=== PATIENT | male | born 1940 | race Caucasian/White ===

== ENCOUNTER 2017-01-16 11:35 | Outpatient (CLI) | payer MEDICARE ==
--- NOTE | 2017-01-16 13:52 | RAD ---
ABDOMEN ONE VIEW: History: Abdominal pain. FINDINGS/IMPRESSION: The bowel gas pattern is unremarkable. There are degenerative changes of the spine. Pelvic phlebolit hs are present. POS: [facility]
== END 2017-01-16 11:36 | disposition home or self-care (01) ==
LOC: RAD-FRANK 11:35
PROVIDERS: ATTEND Nurse Practitioner Family
DX: R10.9 Unspecified abdominal pain (principal); M47.9 Spondylosis, unspecified
CPT/HCPCS: 74000

== ENCOUNTER 2017-09-14 13:28 | Emergency (ER) | payer MEDICARE ==
[2017-09-14 14:37] LABS: #Lymphocytes 0.3 thou/uL (1.20-3.40); #Monocytes 0.5 thou/uL (0.11-0.59); #Neutrophils 2.4 thou/uL (1.40-6.50); %Basophils 0.3 % (0.0-1.0); %Eosinophils 1.1 % (0.0-10.0); %Lymphocytes 9.6 % (21.0-51.0); %Monocytes 14.5 % (0.0-10.0); %Neutrophils 74.5 % (42.0-75.0); Hemoglobin 11.7 g/dL (14.0-18.0); Mean Corpuscular HGB CONC 34.1 g/dL (32.0-36.0); Platelet Count 213 thou/uL (130-400); RBC Distribution Width 12.9 % (11.5-14.5); Red Blood Cell (RBC) Count 3.78 mill/uL (4.70-6.10); White Blood Cell (WBC) Count 3.3 thou/uL (4.8-10.8)
[2017-09-14 14:41] LABS: Bilirubin Negative (Negative); Blood, Urine Moderate (Negative); Clarity CLOUDY (Clear); Glucose, Urine (Dipstick) Negative (Negative); Leukocyte Large (Negative); Nitrite Positive (Negative); Protein, Urine (Dipstick) 30 mg/dL (Neg-Trace); Specific Gravity, Urine 1.012 (1.002-1.036)
[2017-09-14 14:42] LABS: Bacteria/HPF 2+ HPF (None Seen); Hyaline Casts/LPF 0-3 HYALINE CAST LPF (0-3 Hyaline); Pathc Cast-AUWi Flag 0.29 (0-2.49); Squamous Epithelial None Seen HPF (0-3)
[2017-09-14 14:55] LABS: ALT (SGPT) 17 U/L (8-55); AST (SGOT) 22 U/L (5-34); Albumin 3.5 g/dL (3.4-4.8); Alkaline Phosphatase 118 U/L (40-150); Anion Gap 12 mmol/L (10-20); BUN (Urea Nitrogen) 34 mg/dL (8.4-25.7); Bilirubin, Total 2.2 mg/dL (0.2-1.2); Calc. Creatinine Clearance 0 mL/min (70-130); Calcium 8.6 mg/dL (7.8-10.44); Carbon Dioxide 23 mmol/L (23-31); Chloride 105 mmol/L (98-107); Estimated GFR-MDRD 63; Globulin 2.7 g/dL (2.4-3.5); Glucose 91 mg/dL (83-110); Potassium 4.2 mmol/L (3.5-5.1); Protein, Total 6.2 g/dL (5.8-8.1); Sodium 136 mmol/L (136-145)
[2017-09-14] MEDS ORDERED: cefTRIAXone\\ROCEPHIN 1 GM VIAL ONE (15:41)
== END 2017-09-14 17:36 | disposition home or self-care (01) ==
LOC: ERS 13:28
DX: N30.01 Acute cystitis with hematuria (principal); E78.5 Hyperlipidemia, unspecified; I10 Essential (primary) hypertension; Z85.819 Personal history of malignant neoplasm of unspecified site of lip, oral cavity, and pharynx; Z79.899 Other long term (current) drug therapy
CPT/HCPCS: 80053; 81003; 81015; 85025; 96365; J0696

== ENCOUNTER 2017-12-19 08:16 | Outpatient (CLI) | payer MEDICARE ==
--- NOTE | 2017-12-19 09:24 | ULT ---
TESTICULAR ULTRASOUND: Date: 12-19-17 History: Hydrocele, left inguinal hernia, vericocele. Comparison: None available. FINDINGS: The testicles demonstrate slight heterogeneity but have a symmetric appearance bilaterally without ev idence of a testicular mass. The right testicle measures 4.3 cm x 3 cm x 1.9 cm and the left testicle measures 4.1 cm x 3.6 cm x 2.1 cm. The testicles demonstrate symmetric flow bilaterally. Doppler evaluation with spectral analysis and c olor flow evaluation of each testicle does demonstrate arterial and venous flow in each testicle. There is a small 0.4 cm anechoic cystic structure in the right epididymis suggesting an epididymal cy st. The left epididymis is slightly heterogeneous in appearance, and there is an approximately 0.7 cm ane choic cystic structure in the left epididymis, also likely related to a small epididymal cyst. There is evidence of a loop of bowel seen within the left scrotum just superior to the left testicle consistent with inguinal hernia containing a loop of bowel and likely related to a loop of small willy l. There is evidence of small left hydrocele. There are a few dilated tubular structures within the left scrotum measuring up to 3 mm with increased flow on valsalva, findings may be related to small left sided vericocele. IMPRESSION: 1. Left inguinal hernia containing a loop of bowel. 2. Small left hydrocele. 3. Probable small left sided vericocele. 4. Small bilateral epididymal cysts. 5. Nonspecific mild heterogeneity of each testicle without testicular mass seen. POS: [facility]
--- NOTE | 2017-12-19 10:27 | CT ---
CT ABDOMEN WITH AND WITHOUT IV CONTRAST CT PELVIS WITH AND WITHOUT IV COTNRAST: DATE: 12/19/17. HISTORY: Left inguinal hernia. Hydrocele. History of facial cancer. Left testicular swelling. COMPARISON: None available. FINDINGS: There is partial visualization of AICD leads. Median sternotomy wires are present. There is minimal linear atelectasis versus scarring at each lung base. The lungs bases are otherwise clear. Degenerative changes are seen in the spine with a sclerotic density in the left femoral neck demonstr ating characteristics most compatible with a bone island. Punctate sclerotic density in the right in ferior pubic ramus also likely represents a tiny bone island. Dense vascular calcifications are identified with the abdomen and pelvis. A 1.9 cm fluid attenuation hypodense lesion is seen in the mid portion left kidney compatible with a cyst. A subcentimeter too small to characterize hypodense lesion is seen in the inferior pole right kidney. No renal or ureteral calculi are seen bilaterally, and there is no evidence of hydronephrosi s. A few tiny subcentimeter too small to characterize hypodense lesions are seen in the right hepatic lo be. The spleen, pancreas, and bilateral adrenal glands demonstrate a normal CT appearance. The urinary bladder is incompletely distended and while the gonzalez of the urinary bladder appear mildl y thickened, this is likely attributable to incomplete distention. The urinary bladder is otherwise normal in appearance. There is a large left inguinal hernia with multiple loops of bowel including loops of small bowel as well as a portion of the sigmoid colon extend into the hernia. The most inferior extent of the herni a is not visualized. The greatest dimension of the hernia defect is approximately 3 cm. There is a small left hydrocele present. A trace amount of free fluid is seen in the pelvis. A small to moderate amount of retained fecal material is seen throughout the colon. IMPRESSION: 1. Left renal cyst with subcentimeter too small to characterize hypodense lesion in the right kidney . 2. No renal or ureteral calculi are seen bilaterally, and there is no evidence of hydronephrosis. 3. Large left inguinal hernia which contains both small and large loops of bowel, but there is no ev idence of a bowel obstruction. 4. Mild cardiomegaly. 5. Subcentimeter too small to characterize hypodense lesions within the liver. 6. Prominent vascular calcifications throughout the abdomen and pelvis. 7. Multilevel degenerative changes in the lower thoracic as well as involving the lumbar spine. POS: [facility]
== END 2017-12-19 08:17 | disposition home or self-care (01) ==
LOC: ULT 08:16
PROVIDERS: ATTEND Urology
DX: N43.3 Hydrocele, unspecified (principal); I86.1 Scrotal varices; K40.90 Unilateral inguinal hernia, without obstruction or gangrene, not specified as recurrent; N40.1 Benign prostatic hyperplasia with lower urinary tract symptoms; N28.1 Cyst of kidney, acquired; I51.7 Cardiomegaly; K76.9 Liver disease, unspecified; N50.3 Cyst of epididymis; N50.9 Disorder of male genital organs, unspecified; M47.894 Other spondylosis, thoracic region; M47.896 Other spondylosis, lumbar region
CPT/HCPCS: 74178; 76870; 81001; 87086; 93976

== ENCOUNTER 2018-02-28 11:06 | Outpatient (CLI) | payer MEDICARE ==
[2018-02-28 12:12] LABS: Anion Gap 10 mmol/L (10-20); BUN (Urea Nitrogen) 20 mg/dL (8.4-25.7); Calc. Creatinine Clearance 0 mL/min (70-130); Calcium 9.2 mg/dL (7.8-10.44); Carbon Dioxide 25 mmol/L (23-31); Chloride 108 mmol/L (98-107); Estimated GFR-MDRD Greater than 90; Glucose 94 mg/dL (83-110); Potassium 4.2 mmol/L (3.5-5.1); Sodium 139 mmol/L (136-145)
[2018-02-28 13:14] LABS: Band 2 % (5-11); Eosinophils 4 % (0-10); Hemoglobin 12.5 g/dL (14.0-18.0); Lymphocytes 41 % (21-51); MDiff Complete? YES; Mean Corpuscular HGB CONC 31.8 g/dL (32.0-36.0); Mean Corpuscular Volume 94.4 fL (78.0-98.0); Mean Platelet Volume 7.8 fL (7.4-10.4); Monocytes 12 % (0-10); Neutrophil 41 % (42-75); Platelet Count 233 thou/uL (130-400); RBC Distribution Width 13.3 % (11.5-14.5); RBC Morphology Normal; Red Blood Cell (RBC) Count 4.17 mill/uL (4.70-6.10); White Blood Cell (WBC) Count 3.4 thou/uL (4.8-10.8)
--- NOTE | 2018-02-28 17:17 | EKG ---
Test Reason : Blood Pressure : / mmHG Vent. Rate : 058 BPM Atrial Rate : 058 BPM P-R Int : 270 ms QRS Dur : 112 ms QT Int : 458 ms P-R-T Axes : 065 -25 053 degrees QTc Int : 449 ms Sinus bradycardia with 1st degree A-V block Anteroseptal infarct , age undetermined Abnormal ECG When compared with ECG of 14-JAN-2014 07:16, [place] interval has increased Anteroseptal infarct is now Present Borderline criteria for Inferior infarct are no longer Present ST now depressed in Inferior leads Nonspecific T wave abnormality no longer evident in Lateral leads Confirmed by DR. Liz MEDELLIN ([id number]) on 02/28/2018 5:16:45 PM Referred By: MICHAEL Confirmed By:DR. Liz MEDELLIN
== END 2018-02-28 11:07 | disposition home or self-care (01) ==
LOC: LABBT 11:06
PROVIDERS: ATTEND Specialist
DX: Z01.818 Encounter for other preprocedural examination (principal); K40.90 Unilateral inguinal hernia, without obstruction or gangrene, not specified as recurrent
CPT/HCPCS: 80048; 85025; 93005; 93010

== ENCOUNTER 2018-03-06 08:36 | Day surgery (SDC) | payer MEDICARE ==
[2018-02-28 11:33] VITALS: BMI 28.4
--- NOTE | 2018-03-01 07:51 | HP ---
Ric Centeno is a 77-year-old male patient, who lives alone independently and drives independently, b ut his family lives nearby. The patient lives in [place]. 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 The patient is very active, but leaves most of the cattle work to his family now. The patient has an enlarging left inguinal hernia over the past year or greater. It is bothersome to him. He is referred to Dr. Kraus for this, who referred him to me. TOBACCO: None. ALCOHOL: None. ALLERGIES: None. MEDICATIONS: Flomax 0.4 mg a day, carvedilol daily, lisinopril 2.5 mg a day, ferrous sulfate a day, furosemide 20 mg a day, Protonix 40 mg a day, amiodarone 200 mg a day, potassium chloride 10 mEq exte nded release twice a day, Benadryl as needed, aspirin 81 mg a day. 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 Mcneill's mechanical systems control engineer appointment 01/29/2018, 09:00. The patient has a defibrillator placed 5 yea rs ago. REVIEW OF SYSTEMS: [place] point, otherwise, noncontributory. FAMILY HISTORY: Noncontributory. PHYSICAL EXAMINATION: VITAL SIGNS: pounds, 141/63, degrees. HEAD, EARS, EYES, NOSE, AND THROAT: Unremarkable. LUNGS: Clear to auscultation. CARDIAC: Regular rate and rhythm without murmur, rub, or gallop. ABDOMEN: Soft and nontender. Defibrillator in left chest. Standing reveals a left inguinal hernia into the scrotum. Bilateral te sticles normal. Right groin without hernia. ASSESSMENT AND PLAN: 1. Left inguinal hernia. We will plan robotic mesh repair. Risk of infection, bleeding, reoperatio n, recurrence explained, possibility of right inguinal hernia repair with mesh if indicated, based on intraoperative findings discussed. Risks and benefits discussed. Questions answered. Plan robotic left inguinal hernia repair with mesh after cardiac clearance with Dr. Mcneill, who he has appoint ment with. 2. Coronary artery disease, stable, asymptomatic. He is very active. We will await Dr. Mcneill t o see him 01/29/2018 for cardiac clearance. I have informed Dr. Mcneill's office of the purpose of this visit. 3. Defibrillator left chest. 4. History of head and neck cancer, status post Whipple reconstruction, mandible, and chemoradiation therapy. Currently, doing well and living independently. 5. 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 6. Arthritis, rheumatoid, by Dr. Fuller.
--- NOTE | 2018-03-01 07:54 | ADD-HP ---
ADDENDUM HISTORY OF PRESENT ILLNESS: Ric Centeno is a 77-year-old male [facility] Kraus as a history of coronary bypass grafting 07/2010, followed Dr. Zenobia borrero, has a defibrillator placed more than 5 years ago and has seen Dr. Mcneill recently. [facility] has visited Dr. Mcneill. Echocardiogram in July was normal EF, moderate MR, mild , asympt omatic for cardiac standpoint, having recent nuclear stress test with mild ischemia without symptoms and he was cleared for surgery without further cardiac evaluation. Plan is for robotic left inguinal hernia repair with mesh, possible right, pending operative findings. There have been no changes in medications, please see list on 01/15/2018. PHYSICAL EXAMINATION: VITAL SIGNS: Weight 196 pounds, height 61 inches, blood pressure 140/58, heart rate 65, temperature 98.7 degrees. HEAD, EYES, EARS, NOSE AND THROAT: Unremarkable. LUNGS: Clear to auscultation. CARDIAC: Regular rate and rhythm without murmur or gallop. ABDOMEN: Soft, nontender. Hernias as noted previously. ASSESSMENT: Left inguinal hernia. PLAN: Robotic mesh repair, outpatient. He understands the risk and benefits and consents.
[2018-03-06] MEDS ORDERED: CEFAZOLIN 2 GM/50 ML BAG ONE (10:44)
[2018-03-06] MEDS ORDERED: Ketorolac Tromethamine 30 MG/ML VIAL ONE (10:44)
[2018-03-06] MEDS ORDERED: Bupivacaine/Epinephrine 0.25% 30 ML VIAL ONE (11:11)
[2018-03-06] MEDS ORDERED: Fentanyl 250 MCG/5 ML VIAL ONE (12:27)
[2018-03-06] MEDS ORDERED: Succinylcholine Chloride 20 MG/ML 10 ml SYRINGE FS ONE (16:58)
[2018-03-06] MEDS ORDERED: Glycopyrrolate 0.2 MG/ML 5 ML SYRINGE ONE (16:58)
[2018-03-06] MEDS ORDERED: Lidocaine 1% PF 5 ML VIAL ONE (16:58)
[2018-03-06] MEDS ORDERED: Dexamethasone 20 MG/5 ML VIAL ONE (16:58)
[2018-03-06] MEDS ORDERED: PROPOFOL 200 MG/20 ML VIAL ONE (16:58)
[2018-03-06] MEDS ORDERED: ePHEDrine/0.9% NaCl/PF SYRINGE 50 mg/10 ml ONE (16:58)
--- NOTE | 2018-03-06 19:32 | OP ---
DATE OF PROCEDURE: 03/06/2018 PREOPERATIVE DIAGNOSIS: Sliding left inguinal hernia. POSTOPERATIVE DIAGNOSIS: Sliding left inguinal hernia. PROCEDURE: 3DMax large mesh repair robotic sliding left inguinal hernia. SURGEON: Otoniel Dumont M.D. ANESTHESIA: General. Local 0.5% Marcaine with epinephrine, 30 mL. PROCEDURE: The patient was taken to the operating room. Under general anesthesia, abdomen was prepa red with ChloraPrep, draped in routine fashion. Supraumbilical incision made left of midline and pne umoperitoneum to 15 mmHg obtained with the Veress needle, replacing with a balloon port, inflating th e balloon and securing against the abdominal wall, placement laparoscope and making two lateral abdominal incisions, left and right and 8 mm ports placed under laparoscopic visualization. With th e patient is in the Trendelenburg, robot was docked and robotic repair of the left inguinal hernia, s liding undertaken. Incarcerated contents reduced with gentle traction and cautery for energy source resecting adhesions. Once this was reduced, flap was created by scoring the peritoneum from the ante rior superior iliac spine medially to the midline and dissecting hernia sac free from the ingui nal canal. Once this was completely dissected free from the cord structures, an approximately 8 cm o f cord structure was exposed and lateral medial dissection carried out identifying Abe's ligament laterally. The mesh 3DMax large was inserted, properly oriented, placed against the Abe's ligamen t securing it with 2-0 Vicryl with robotic suturing and to the anterior abdominal wall to the left ep igastric vessels with 2-0 Vicryl. Flap closed with continuous suture of 2-0 V-Loc. Good hernia repa ir undertaken. Pneumoperitoneum reduced after right thigh was noted to not have an inguinal hernia. Midline incision was closed with interrupted suture of 4-0 Monocryl and DermaGlue applied.
== END 2018-03-06 19:40 | disposition home or self-care (01) ==
LOC: SDC 08:36
PROVIDERS: ATTEND Specialist
PROC: 0YU64JZ Supplement Left Inguinal Region with Synthetic Substitute, Percutaneous Endoscopic Approach (ICD-10-PCS; principal; 2018-03-06)
DX: K40.90 Unilateral inguinal hernia, without obstruction or gangrene, not specified as recurrent (principal); Z91.041 Radiographic dye allergy status
CPT/HCPCS: 49650; 51798; C1781; J0131; J1100; J1885; J2001; J2704; J3010

== ENCOUNTER 2018-04-26 08:01 | Outpatient (CLI) | payer MEDICARE ==
--- NOTE | 2018-04-26 08:19 | RAD ---
PA AND LATERAL CHEST: HISTORY: Cough. COMPARISON: A 08/23/2013 study. FINDINGS: Heart size is within normal limits. Postop sternotomy changes. Internal defibrillator device presen t. There are some interstitial changes in both lung bases consistent with some atelectasis versus so me early minimal infiltrate. There is blunting to both costophrenic angles. IMPRESSION: Suggestion of some small effusions with some bibasilar atelectasis versus developing infiltrate. POS: [facility]
== END 2018-04-26 08:02 | disposition home or self-care (01) ==
LOC: RAD-FRANK 08:01
PROVIDERS: ATTEND Nurse Practitioner Family
DX: R05 Cough (principal)
CPT/HCPCS: 71046

== ENCOUNTER 2018-05-09 08:13 | Outpatient (CLI) | payer MEDICARE ==
--- NOTE | 2018-05-09 09:27 | RAD ---
CHEST 2 VIEWS: HISTORY: Pneumonia. Followup. COMPARISON: 04/26/2018. FINDINGS: Cardiac silhouette is upper limits of normal. Lungs remain hyperinflated. Mediastinum midline with aortic calcification, [id number] changes, and a single lead left subclavian cardiac electronic de vice. Blunting of the right lateral costophrenic angle is less pronounced than on the prior study. Posteri or basilar infiltrates are also less dense. No evidence of pneumothorax. No new infiltrates. IMPRESSION: 1. Partial clearing of the bibasilar infiltrates and right pleural fluid. No new abnormalities. 2. Atherosclerosis. POS: [facility]
== END 2018-05-09 08:14 | disposition home or self-care (01) ==
LOC: RAD-FRANK 08:13
PROVIDERS: ATTEND Nurse Practitioner Family
DX: R91.8 Other nonspecific abnormal finding of lung field (principal); I70.0 Atherosclerosis of aorta
CPT/HCPCS: 71046

== ENCOUNTER 2018-08-02 10:49 | Outpatient (CLI) | payer MEDICARE ==
[2018-08-02 13:00] LABS: Hemoglobin 12.8 g/dL (14.0-18.0); Mean Corpuscular HGB CONC 33.6 g/dL (32.0-36.0); Mean Corpuscular Hemoglobin 30.2 pg (27.0-31.0); Mean Corpuscular Volume 90.1 fL (78.0-98.0); Mean Platelet Volume 8.1 fL (7.4-10.4); Platelet Count 245 thou/uL (130-400); RBC Distribution Width 15.5 % (11.5-14.5); Red Blood Cell (RBC) Count 4.23 mill/uL (4.70-6.10); White Blood Cell (WBC) Count 3.4 thou/uL (4.8-10.8)
[2018-08-02 13:05] LABS: INR-International Normal Ratio 1.1; PTT 30.9 SEC (22.9-36.1); Prothrombin Time 14.3 SEC (12.0-14.7)
[2018-08-02 13:10] LABS: Bilirubin Negative (Negative); Blood, Urine Negative (Negative); Clarity CLOUDY (Clear); Glucose, Urine (Dipstick) Negative (Negative); Leukocyte Negative (Negative); Nitrite Negative (Negative); Protein, Urine (Dipstick) Negative (Neg-Trace)
[2018-08-02 13:16] LABS: Bacteria/HPF None Seen HPF (None Seen); Hyaline Casts/LPF 0-3 HYALINE CAST LPF (0-3 Hyaline); RBC/HPF 0-3 HPF (0-3); Squamous Epithelial None Seen HPF (0-3); WBC/HPF None Seen HPF (0-3)
--- NOTE | 2018-08-05 22:34 | EKG ---
Test Reason : Blood Pressure : / mmHG Vent. Rate : 058 BPM Atrial Rate : 058 BPM P-R Int : 296 ms QRS Dur : 116 ms QT Int : 474 ms P-R-T Axes : 072 -29 054 degrees QTc Int : 465 ms Sinus bradycardia with 1st degree A-V block with occasional Premature ventricular complexes Anteroseptal infarct (cited on or before 11-SEP-2013) Abnormal ECG When compared with ECG of 28-FEB-2018 11:28, Premature ventricular complexes are now Present Confirmed by Keith DEVI ([id number]) on 08/05/2018 10:33:58 PM Referred By: ROBERT Confirmed By:Keith DEVI
== END 2018-08-02 10:50 | disposition home or self-care (01) ==
LOC: LABBT 10:49
PROVIDERS: ATTEND Urology
DX: Z01.818 Encounter for other preprocedural examination (principal); N40.1 Benign prostatic hyperplasia with lower urinary tract symptoms
CPT/HCPCS: 81001; 85027; 85610; 85730; 87086; 93005; 93010

== ENCOUNTER 2018-08-14 08:36 | Day surgery (SDC) | payer MEDICARE ==
[2018-08-02 11:45] VITALS: BMI 28.7
[2018-08-14] MEDS ORDERED: Levofloxacin 500 mg/D5W 100 ml Premix Bag ONE (10:17)
[2018-08-14] MEDS ORDERED: Fentanyl 100 MCG/2 ML VIAL ONE (11:29)
[2018-08-14] MEDS ORDERED: Oxybutynin 5 MG TAB ONE (12:41)
[2018-08-14] MEDS ORDERED: Phenazopyridine HCl 97.5 MG TABLET ONE (12:41)
[2018-08-14] MEDS ORDERED: hydrALAZINE 20 MG/ML VIAL ONE (13:43)
[2018-08-14] MEDS ORDERED: PHENYLEPHRINE-NS 100 MCG/ML 10 ML SYRINGE ONE (15:52)
[2018-08-14] MEDS ORDERED: PROPOFOL 200 MG/20 ML VIAL ONE (15:52)
[2018-08-14] MEDS ORDERED: Lidocaine 1% PF 5 ML VIAL ONE (15:52)
[2018-08-14] MEDS ORDERED: Ondansetron PF 4 MG/2 ML Vial ONE (15:52)
--- NOTE | 2018-08-14 17:45 | OP ---
DATE OF PROCEDURE: 08/14/2018 PREOPERATIVE DIAGNOSIS: A 78-year-old male with benign prostatic hyperplasia symptoms. POSTOPERATIVE DIAGNOSIS: A 78-year-old male with benign prostatic hyperplasia symptoms. PROCEDURES PERFORMED: Cystoscopy, UroLift implant x6, and fulguration of bladder neck. ANESTHESIA: General. COMPLICATIONS: None apparent. DISPOSITION: To recovery room in stable condition. INDICATIONS FOR PROCEDURE: Mr. Centeno is a 78-year-old pleasant male, who is known to have a history of BPH with persistent obstructive urinary symptoms despite being on medical therapy. He has mild incomplete void, last PVR of 90 mL. He desired to proceed with surgical intervention for BPH. Given his elderly age, we discussed minimally invasive options of UroLift and he desired to proceed. DESCRIPTION OF PROCEDURE: After informed consent was signed, the patient was taken to the operating room, placed in a dorsal lithotomy position with the genital area prepped and draped in the usual surgical sterile fashion. A 20-Polish cystoscope was inserted per urethra, cystoscopic bridge was then placed with a UroLift delivery device. We surveyed the bladder, which demonstrated the ureteral orifice about 3 to 4 mm away from the bladder neck, there was no evidence of bladder tumor, stones of concern. The first treatment site was chosen on the left side, approximately 1.5 cm distal to the bladder neck. The tip of the delivery device was angled laterally approximately 20 degrees and in this position, we compressed the lateral lobe. The trigger was pulled, therefore deploying the needle containing the implant through the prostate. The needle was then retracted allowing end of the implant to be delivered to the capsular surface of the prostate. The implant was then tensioned to ensure capsular seating and removal of slack on the monofilament. Device was then angle toward the midline slowly, and cystoscope verification of the monofilament being centered in the delivery bay. The urethra end piece was then affixed in a monofilament, therefore tailored to the size of the implant. Excess filament was then severed. The delivery device was then readvanced into the bladder. Resolution of the lateral lobe obstructing lobes was noted. We then placed contralateral symmetrically, a total of 6 implant was required to resolve the lateral obstructing lobes. At the end of the procedure, the view from the verumontanum demonstrates a wide open channel. There was some oozing from the bladder neck. Therefore, I did transition to a regular 21-Polish cystoscope. Using endoscopic Bovie, I cauterized the bladder neck anteriorly, which was having some venous oozing. This resolved without cauterization. An 18-Polish Friend catheter was placed. 10 mL insufflated with light pink tinged urine. He tolerated the procedure well and transported to the recovery room in stable condition. He will be discharged for short course of antibiotic therapy, Colace. Will see me tomorrow for a voiding trial. Job ID: [id number] [facility]
== END 2018-08-14 18:00 | disposition home or self-care (01) ==
LOC: SDC 08:36
PROVIDERS: ATTEND Urology
PROC: 0T7D8DZ Dilation of Urethra with Intraluminal Device, Via Natural or Artificial Opening Endoscopic (ICD-10-PCS; principal; 2018-08-14)
DX: N40.1 Benign prostatic hyperplasia with lower urinary tract symptoms (principal); N13.8 Other obstructive and reflux uropathy; R39.14 Feeling of incomplete bladder emptying; I25.2 Old myocardial infarction; I10 Essential (primary) hypertension; M06.9 Rheumatoid arthritis, unspecified; I25.10 Atherosclerotic heart disease of native coronary artery without angina pectoris; M19.90 Unspecified osteoarthritis, unspecified site; Z87.891 Personal history of nicotine dependence; Z79.899 Other long term (current) drug therapy; Z91.041 Radiographic dye allergy status; Z95.1 Presence of aortocoronary bypass graft; Z98.890 Other specified postprocedural states
CPT/HCPCS: J0360; J1956; J2001; J2405; J2704; J3010

== ENCOUNTER 2018-11-18 09:36 | Outpatient (CLI) | payer MEDICARE ==
[2018-11-18 17:36] LABS: Bacteria/HPF None Seen HPF (None Seen); Bilirubin Negative (Negative); Blood, Urine Negative (Negative); Clarity Clear (Clear); Glucose, Urine (Dipstick) Normal (Negative); Leukocyte Negative Leu/uL (Negative); Nitrite Negative (Negative); Protein, Urine (Dipstick) Negative (Neg-Trace); RBC/HPF None Seen HPF (0-3); Squamous Epithelial None Seen HPF (0-3); Urobilinogen Normal mg/dL (Less than 2); WBC/HPF 0-3 HPF (0-3)
[2018-11-18 17:37] LABS: Urine Culture Reflex No No
== END 2018-11-18 09:37 | disposition home or self-care (01) ==
LOC: RAD-FRANK 09:36
PROVIDERS: ATTEND Urology
DX: N40.1 Benign prostatic hyperplasia with lower urinary tract symptoms (principal); R33.9 Retention of urine, unspecified
CPT/HCPCS: 81001

== ENCOUNTER 2020-06-14 10:45 | Outpatient (CLI) | payer MEDICARE ==
--- NOTE | 2020-06-14 11:07 | RAD ---
EXAM: Chest PA and lateral: HISTORY: Follow up infiltrate. Long-term medication usage. COMPARISON: 05/09/2018 FINDINGS: Stable single lead left-sided defibrillator. Stable sternotomy wires. Heart: Stable cardiomegaly Aorta: Atherosclerosis Pulmonary vessels: Normal Costophrenic angles: Small right and trace left pleural effusion Lungs: Patchy interstitial opacities Pneumothorax: No pneumothorax Osseous structures: No osseous abnormalities IMPRESSION: 1. Atherosclerosis 2. Congestive heart failure.
== END 2020-06-14 10:46 | disposition home or self-care (01) ==
LOC: RAD-FRANK 10:45
PROVIDERS: ATTEND Internal Medicine Cardiovascular Disease
DX: Z92.29 Personal history of other drug therapy (principal); I70.90 Unspecified atherosclerosis; I50.9 Heart failure, unspecified
CPT/HCPCS: 71046

== ENCOUNTER 2020-07-15 14:09 | Outpatient (CLI) | payer MEDICARE ==
[2020-07-15 15:44] LABS: Hemoglobin 10.1 g/dL (13.5-17.5); Mean Corpuscular HGB CONC 33.1 g/dL (32.0-36.0); Mean Corpuscular Hemoglobin 29.2 pg (27.0-33.0); Mean Corpuscular Volume 88.2 fl (81.2-95.1); Mean Platelet Volume 9.1 fl (7.4-10.4); Platelet Count 354 10x3/uL (150-450); RBC Distribution Width 15.1 % (11.5-14.5); Red Blood Cell (RBC) Count 3.46 10x6/uL (4.32-5.72); White Blood Cell (WBC) Count 4.3 10x3/uL (3.5-10.5)
[2020-07-15 16:04] LABS: ALT (SGPT) 11 U/L (8-55); AST (SGOT) 12 U/L (5-34); Albumin 3.6 g/dL (3.4-4.8); Alkaline Phosphatase 100 U/L (40-110); Anion Gap 12 mmol/L (10-20); BUN (Urea Nitrogen) 18 mg/dL (8.4-25.7); Bilirubin, Total 1.1 mg/dL (0.2-1.2); Calc. Creatinine Clearance 0 mL/min (70-130); Calcium 8.7 mg/dL (7.8-10.44); Carbon Dioxide 28 mmol/L (23-31); Chloride 94 mmol/L (98-107); Globulin 2.7 g/dL (2.4-3.5); Glucose 126 mg/dL (83-110); Protein, Total 6.3 g/dL (5.8-8.1); Sodium 130 mmol/L (136-145)
[2020-07-16 04:28] LABS: SARS-CoV-2 PCR by NAA Not Detected (NotDetected)
== END 2020-07-15 14:10 | disposition home or self-care (01) ==
LOC: LABBT 14:09
PROVIDERS: ATTEND Internal Medicine Cardiovascular Disease
DX: Z01.812 Encounter for preprocedural laboratory examination (principal); Z20.822 Contact with and (suspected) exposure to COVID-19
CPT/HCPCS: 80053; 85027; U0003; U0005; 87635

== ENCOUNTER 2020-07-20 05:43 | Day surgery (SDC) | payer MEDICARE ==
[2020-07-19 10:05] VITALS: BMI 40.4
[2020-07-20] MEDS ORDERED: Lidocaine 1% (PF) 30 ML VIAL ONE (06:38)
[2020-07-20] MEDS ORDERED: Diazepam 5 MG TAB ONE (06:42)
[2020-07-20] MEDS ORDERED: Iopamidol 370 76% 100 ML VIAL ONE (09:33)
== END 2020-07-20 13:22 | disposition home or self-care (01) ==
LOC: SDC 05:43
PROVIDERS: ATTEND Internal Medicine Cardiovascular Disease
PROC: 4A023N7 Measurement of Cardiac Sampling and Pressure, Left Heart, Percutaneous Approach (ICD-10-PCS; principal; 2020-07-20)
PROC: B2111ZZ Fluoroscopy of Multiple Coronary Arteries using Low Osmolar Contrast (ICD-10-PCS; 2020-07-20)
PROC: B2181ZZ Fluoroscopy of Left Internal Mammary Bypass Graft using Low Osmolar Contrast (ICD-10-PCS; 2020-07-20)
PROC: B2121ZZ Fluoroscopy of Single Coronary Artery Bypass Graft using Low Osmolar Contrast (ICD-10-PCS; 2020-07-20)
DX: I35.0 Nonrheumatic aortic (valve) stenosis (principal); I25.5 Ischemic cardiomyopathy; I11.0 Hypertensive heart disease with heart failure; I50.22 Chronic systolic (congestive) heart failure; I25.10 Atherosclerotic heart disease of native coronary artery without angina pectoris; I25.82 Chronic total occlusion of coronary artery; E78.5 Hyperlipidemia, unspecified; Z79.899 Other long term (current) drug therapy; Z91.041 Radiographic dye allergy status; Z95.1 Presence of aortocoronary bypass graft; Z95.810 Presence of automatic (implantable) cardiac defibrillator
CPT/HCPCS: 76942; 93457; G0278; J2001; Q9967